=== PATIENT | female | born 1960 | race Caucasian/White ===

== ENCOUNTER 2020-06-11 10:50 | Outpatient (CLI) | payer BC, OTHER, SELFPAY ==
--- NOTE | 2020-06-11 11:04 | XR_ITS ---
WS: [id number] SHOULDER LEFT TECHNIQUE: 3 views of the left shoulder CLINICAL INFORMATION: PAIN IN LEFT SHOULDER COMPARISON: None. FINDINGS: Moderate degenerative arthritis acromioclavicular joint with hypertrophic changes. Mild degenerative narrowing glenohumeral joint. Acromion is normal in appearance. Normal glenoid. No evidence of acute fracture dislocation. XR/XR shoulder LT min 2V* [id number] IMPRESSION: No acute fractures
--- NOTE | 2020-06-11 11:04 | XR_ITS ---
WS: [id number] Humerus LEFT TECHNIQUE: 2 views of the left humerus CLINICAL INFORMATION: PAIN IN LEFT UPPRE ARM COMPARISON: None. FINDINGS: Normal left humerus. No acute fracture dislocation. XR/[place] [id number] IMPRESSION: Normal left humerus.
== END 2020-06-11 10:51 | disposition home or self-care (01) ==
LOC: RADWPI 11:00
PROVIDERS: PCP Nurse Practitioner Family; Visit Provider Nurse Practitioner Family
DX: M79.622 Pain in left upper arm (principal); M25.512 Pain in left shoulder
CPT/HCPCS: 73030; 73060

== ENCOUNTER 2020-08-01 10:27 | Outpatient (CLI) | payer BC, OTHER, SELFPAY ==
--- NOTE | 2020-08-01 11:00 | MR_ITS ---
WS: [id number] MRI LEFT SHOULDER NONCONTRAST TECHNIQUE: Sagittal T2, coronal T1, T2 and proton density imaging. Axial gradient PDE imaging. CLINICAL INFORMATION: M25.512 - Pain in left shoulder COMPARISON: None. FINDINGS: Moderate degenerative arthritis at the AC joint with mild edema. Subacromial space is preserved. Mild chronic thinning of the distal supraspinatus. Tiny insertional tear at the undersurface distal supra spinatus. Mild tendinopathy distally. Normal infraspinatus. Normal subscapularis. Teres minor is norm al. No full-thickness rotator cuff tears. Normal biceps tendon in the bicipital groove. Degenerative fraying of the glenoid labrum.Normal intra -articular biceps tendon. Normal bone marrow signal in the humeral head and neck. No acute fractures. Normal bony glenoid. IMPRESSION: 1. Moderate degenerative arthritis at the AC joint with mild edema. 2. Tiny undersurface tear at the supraspinatus insertion. Tendinopathy in the distal supraspinatus. 3. Rotator cuff is otherwise unremarkable. No high-grade rotator cuff tears. 4. Normal biceps tendon in the bicipital groove. Normal intra-articular biceps tendon. 5. Degenerative fraying glenoid labrum. 6. Normal bone marrow signal in the humeral head and neck. No acute fractures. Normal bony glenoid.
== END 2020-08-01 10:28 | disposition home or self-care (01) ==
LOC: RADSHAW 10:31
PROVIDERS: PCP Nurse Practitioner Family; Visit Provider Orthopaedic Surgery
DX: M19.012 Primary osteoarthritis, left shoulder (principal); R60.0 Localized edema; M75.102 Unspecified rotator cuff tear or rupture of left shoulder, not specified as traumatic
CPT/HCPCS: 73221

== ENCOUNTER 2020-09-16 11:05 | Outpatient (CLI) | payer BC, OTHER, SELFPAY ==
--- NOTE | 2020-09-16 11:11 | MM_ITS ---
WS: [id number] BILATERAL SCREENING MAMMOGRAM WITH YUE DISPLACEMENT VIEWS. CAD PERFORMED. HISTORY: SCREENING COMPARISON: None available. Bilateral craniocaudal and mediolateral like views are performed. Yue displacement views in CC and MLO projection also performed. Breasts composition: There are scattered areas of fibroglandular density. Prepectoral implants are intact. Asymmetry central to the nipple and above the nipple on the implant displacement views of the RIGHT breast. There is an additional partially visualized asymmetry on the LEFT ML displacement view posteriorly above the nipple line. Incompletely visualized. This may corres pond to the increased density seen on the LEFT CC projection anterior to the implant. MM/[place] [id number] IMPRESSION: BI-RADS: 0-Incomplete: Need additional imaging evaluation FOLLOW-UP: Need Additional Imaging Bilateral breast: Spot compression views (CC and MLO). True ML. Ultrasound to f jonathonlow if abnormality persists.
== END 2020-09-16 11:06 | disposition home or self-care (01) ==
LOC: RADSHAW 11:08
PROVIDERS: PCP Nurse Practitioner Family; Visit Provider Nurse Practitioner Family
DX: Z12.31 Encounter for screening mammogram for malignant neoplasm of breast (principal); N64.89 Other specified disorders of breast
CPT/HCPCS: 77067

== ENCOUNTER 2020-09-30 14:33 | Outpatient (CLI) | payer BC, OTHER, SELFPAY ==
--- NOTE | 2020-09-30 14:41 | MM_ITS ---
WS: [id number] ADDITIONAL VIEWS BILATERAL MAMMOGRAM ADDITIONAL VIEWS BILATERAL MAMMOGRAM HISTORY: ABNORMAL/INCONCLUSIVE FINDING ON IMAGING OF BREAST COMPARISON: 09/16/2020 Right breast: Asymmetry in the RIGHT breast seen on the prior study of the implant appears to be a ly mph node. Left breast: Asymmetry adjacent to the LEFT implant resolves on the spot compression LEFT CC. MM/[place] [id number] IMPRESSION: BI-RADS: 2-Benign FOLLOW UP: 1 Year Follow-up
== END 2020-09-30 14:34 | disposition home or self-care (01) ==
LOC: RADSHAW 14:39
PROVIDERS: PCP Nurse Practitioner Family; Visit Provider Nurse Practitioner Family
DX: R92.8 Other abnormal and inconclusive findings on diagnostic imaging of breast (principal); N64.89 Other specified disorders of breast
CPT/HCPCS: 77066

== ENCOUNTER 2022-11-29 09:25 | Outpatient (CLI) | payer BC, OTHER, SELFPAY ==
--- NOTE | 2022-11-29 09:38 | XR_ITS ---
WS: [id number] XR knee LT 1-2V [id number] REASON FOR EXAM: BILATERAL KNEE PAIN FINDINGS: No fracture or other focal bone lesion. The medial knee joint spaces intact and well preserved. Moderate narrowing of the lateral knee joint space (joint space not well demonstrated) with moderate subchondral sclerosis and osteophytosis. Mild narrowing of the patellofemoral joint space with subchondral sclerosis and osteophytosis of the patella. XR/XR knee LT -V [id number] IMPRESSION: Moderate osteoarthritis of the left knee as above.
--- NOTE | 2022-11-29 09:38 | XR_ITS ---
WS: [id number] XR knee RT 1-2V [id number] REASON FOR EXAM: BILATERAL KNEE PAIN FINDINGS: No fracture or focal bone lesion. Medial knee joint space is intact. Moderate osteophytosis of the medial femoral condyle. Moderate narrowing of the lateral knee joint space (joint space not well demonstrated) with moderate subchondral sclerosis and osteophytosis. Mild narrowing of the patellofemoral joint space with subchondral sclerosis and marginal osteophytosi s of the patella. XR/XR knee RT 1-2V [id number] IMPRESSION: Moderate osteoarthritis of the right knee.
== END 2022-11-29 09:26 | disposition home or self-care (01) ==
PROVIDERS: PCP Nurse Practitioner Family; Visit Provider Nurse Practitioner Family
DX: M17.0 Bilateral primary osteoarthritis of knee (principal)
CPT/HCPCS: 73560

== ENCOUNTER 2022-12-10 15:06 | Outpatient (CLI) | payer BC, SELFPAY ==
--- NOTE | 2022-12-10 15:10 | MM_ITS ---
WS: [id number] BILATERAL 3D TOMOSYNTHESIS DIGITAL SCREENING MAMMOGRAPHY WITH CAD CLINICAL INFORMATION: SCREENING HISTORY: Screening mammogram. No current complaints. COMPARISON: September 16, 2020 TECHNIQUE: Bilateral CC and MLO views. FINDINGS: Bilateral breast implants. These are stable in appearance compared to previous. Scattered fibroglandular densities bilaterally. No suspicious focal mass, asymmetry, calcifications, or architectural distortion. No evidence of malignancy. A few tiny incidental punctate calcifications . MM/[place] [id number] IMPRESSION: BI-RADS: 2-Benign FOLLOW UP: 1 Year Follow-up Recommend return to annual screening mammography.
== END 2022-12-10 15:07 | disposition home or self-care (01) ==
LOC: RAD 15:07
PROVIDERS: PCP Nurse Practitioner Family; Visit Provider Nurse Practitioner Family
DX: Z12.31 Encounter for screening mammogram for malignant neoplasm of breast (principal)
CPT/HCPCS: 77063; 77067

== ENCOUNTER 2024-03-05 11:53 | Outpatient (CLI) | payer BC, SELFPAY ==
--- NOTE | 2024-03-05 11:59 | XRR_ITS ---
PROCEDURE INFORMATION: Exam: XR Abdomen Exam date and time: 03/05/2024 12:05 PM Age: 63 years old Clinical indication: Abdominal pain; Localized; Lower; Prior surgery; Surgery date: 6+ months; Surgery type: Hysterectomy; Additional info: Lower abdominal pain TECHNIQUE: Imaging protocol: Radiologic exam of the abdomen. Views: Frontal supine view of the abdomen. 1 View. COMPARISON: No relevant prior studies available. FINDINGS: Gastrointestinal tract: Moderate stool burden in the ascending colon. Organs: Status post cholecystectomy. Bones/joints: Degenerative changes of the lower lumbar spine with mild levocurvature. XR/XR KUB [id number] IMPRESSION: No acute findings.
== END 2024-03-05 11:54 | disposition home or self-care (01) ==
LOC: RAD 11:57
PROVIDERS: PCP Nurse Practitioner Family; Visit Provider Nurse Practitioner Family
DX: K59.00 Constipation, unspecified (principal); M51.36 Other intervertebral disc degeneration, lumbar region; Z90.710 Acquired absence of both cervix and uterus; Z90.49 Acquired absence of other specified parts of digestive tract; R10.30 Lower abdominal pain, unspecified
CPT/HCPCS: 74018

== ENCOUNTER 2024-07-24 11:44 | Outpatient (RCR) | payer BC, SELFPAY | END 2024-08-17 23:59 | disposition home or self-care (01) | LOC: SPT 11:44 | PROVIDERS: Visit Provider Nurse Practitioner Family | DX: Z47.1 Aftercare following joint replacement surgery (principal); Z96.652 Presence of left artificial knee joint | CPT/HCPCS: 97110; 97112; 97161 ==

== ENCOUNTER 2024-08-16 17:37 | Emergency (ER) | payer BC, SELFPAY ==
--- NOTE | 2024-08-16 17:39 | USR_ITS ---
PROCEDURE INFORMATION: Exam: US Duplex Left Lower Extremity Veins, Limited Exam date and time: 08/16/2024 5:54 PM Age: 64 years old Clinical indication: Pain; Leg, lower; Left; Prior surgery; Surgery date: 1-6 months; Surgery type: Knee replacement; Additional info: Swelling TECHNIQUE: Imaging protocol: Real-time duplex ultrasound of the left extremity with 2-D rust scale, color Doppler flow and spectral waveform analysis including responses to compression and other maneuvers (when performed) with image documentation. Limited exam focused on the left lower extremity veins. COMPARISON: CR XR knee LT 1-2V [id number] 11/29/2022 9:41 AM FINDINGS: Left deep veins: Unremarkable. The common femoral, femoral, proximal profunda femoral, popliteal, posterior tibial and peroneal veins are patent without thrombus. Normal compressibility, augmentation response and Doppler waveforms. Superficial veins: Greater saphenous vein at the saphenofemoral junction is patent without thrombus. Soft tissues: Unremarkable. US/[place] [id number] IMPRESSION: No sonographic evidence of deep vein thrombosis.
[2024-08-16 17:54] VITALS: BP 115/70; PULSE 85; TEMP 36.8; O2SAT 99; BMI 29.2
--- NOTE | 2024-08-16 18:34 | W.ED.EXTPRO ---
HPI - Extremity Problem General: Chief complaint: Extremity Problem,Nontraumatic Stated complaint: Lt leg swollen Time Seen by Provider: 08/16/24 18:26 Source: patient Mode of arrival: ambulatory Limitations: no limitations History of Present Illness: 64-year-old female that had a knee replacement to her left knee 1 month ago. States been doing physical therapy been doing fine but states over the last week she has been having pain in her left Achilles tendon she has had some increased swelling to her left lower leg as well. States pain is worse with walking she denies any new injuries she said that she did talk to orthopedist and they wanted to make sure she did not have a blood clot Associated symptoms: Deny chest pain, fever(s) or rash Related Data Home Medications ?Medication ?Instructions ?Recorded ?Confirmed atorvastatin 10 mg tablet 10 mg PO DAILY 07/21/20 07/21/20 etodolac 400 mg tablet 400 mg PO BID 07/21/20 07/21/20 levothyroxine 88 mcg capsule 88 mcg PO DAILY 07/21/20 07/21/20 omeprazole 40 mg capsule,delayed 40 mg PO DAILY 07/21/20 07/21/20 release tramadol 50 mg tablet 50 mg PO DAILY 07/21/20 07/21/20 Allergies Allergy/AdvReac Type Severity Reaction Status Date / Time celecoxib (From Celebrex) Allergy Severe ALGY-Anaphy Verified 08/16/24 18:00 laxis Review of Systems Const: Denies: fever(s), chills, body aches or change in appetite ENMT: Denies: throat pain or dental pain Card: Denies: chest pain Resp: Denies: dyspnea GI: Denies: abdominal pain, nausea, vomiting or diarrhea Musc: Reports: extremity pain; Denies: neck pain or back pain Skin/Breast: Denies: rash Neuro: Denies: headache(s) Physical Exam Const: COMMON NORMALS: no acute distress, patient oriented x3 and healthy appearing HENMT: COMMON NORMALS: normocephalic and atraumatic HEAD & SCALP: normocephalic and atraumatic Eye: COMMON NORMALS: conjunctivae normal CONJUNCTIVA: Yes conjunctivae normal Neck/C-Spine: COMMON NORMALS: full ROM and supple Chest: COMMONS NORMALS: normal inspection of the chest Resp: COMMON NORMALS: normal respiratory effort Cardio: COMMON NORMALS: regular rate RATE: regular rate Extremity: OTHER: Tenderness over left Achilles tendon tendons intact some slight left calf swelling incision to her knee is clean dry and intact no warmth to touch Neuro: COMMON NORMALS: patient oriented x3, moves all extremities and no focal motor deficits Psych: COMMON NORMALS: mental status grossly normal, Normal thought process present and cooperative THOUGHT PROCESS: Normal thought process present Skin: COMMON NORMALS: no rashes or lesions noted and no wounds GENERAL SKIN EXAM: no rashes or lesions noted Course Vital Signs: Vital signs: Vital Signs Temperature 98.2 F 08/16/24 17:54 Pulse Rate 85 08/16/24 17:54 Blood Pressure 115/70 08/16/24 17:54 Pulse Oximetry 99 08/16/24 17:54 Oxygen Delivery Me thod Room Air 08/16/24 17:54 MDM - Extremity (Nontraumatic) Medical Decision Making Patient presents for left leg pain is likely a tendinitis ultrasound here showed no signs of DVT she stable for discharge she is to follow-up with orthopedist she is to rest ice compress. Medical Records I reviewed the patient's medical records. No radiology studies performed this visit Discharge Plan Discharge Patient Disposition: Home Clinical Impression: Left leg pain Condition: Stable Prescriptions: No Action atorvastatin 10 mg tablet 10 mg PO DAILY etodolac 400 mg tablet 400 mg PO BID levothyroxine 88 mcg capsule 88 mcg PO DAILY omeprazole 40 mg capsule,delayed release(DR/EC) 40 mg PO DAILY tramadol 50 mg tablet 50 mg PO DAILY Discharge Orders: Discharge ED (Routine); Ordered 08/16/24 Ordered By: Michi Wheeler Referrals: Song Garrett MD [Primary Care Provider] - 4-7 days Discharge Diet: Advance as tolerated Discharge Activity: Resume usual activity Patient Instructions: Leg Pain (ED) Print Language: Guamanian Coding Level of Care Code ED Finger Lift Operator for Soraya Martinez
[2024-08-16] MEDS: HYDROcodone-acetaminophen 7.5-325 mg Tablet 1 TAB PO (18:56)
[2024-08-16 18:57] VITALS: BP 106/58; PULSE 81; O2SAT 98
== END 2024-08-16 19:01 | disposition home or self-care (01) ==
PROVIDERS: Emergency Provider Emergency Medicine; PCP Orthopaedic Surgery
DX: M79.605 Pain in left leg (principal); Z96.652 Presence of left artificial knee joint
CPT/HCPCS: 93971; 99284

== ENCOUNTER 2024-08-18 06:00 | Outpatient (RCR) | payer BC, SELFPAY | END 2024-09-17 23:59 | disposition home or self-care (01) | LOC: SPT 06:00 | PROVIDERS: PCP Orthopaedic Surgery; Visit Provider Nurse Practitioner Family | DX: Z47.1 Aftercare following joint replacement surgery (principal); Z96.652 Presence of left artificial knee joint | CPT/HCPCS: 97110 ==

== ENCOUNTER 2024-09-18 06:00 | Outpatient (RCR) | payer BC, SELFPAY | END 2024-10-17 23:59 | disposition home or self-care (01) | LOC: SPT 06:00 | PROVIDERS: PCP Orthopaedic Surgery; Visit Provider Nurse Practitioner Family | DX: Z47.1 Aftercare following joint replacement surgery (principal); Z96.652 Presence of left artificial knee joint | CPT/HCPCS: 97110; 97164 ==

== ENCOUNTER 2024-10-18 05:00 | Outpatient (RCR) | payer BC, SELFPAY | END 2024-11-17 23:59 | disposition home or self-care (01) | LOC: SPT 05:00 | PROVIDERS: PCP Nurse Practitioner Family; Visit Provider Podiatrist Foot & Ankle Surgery | DX: M76.62 Achilles tendinitis, left leg (principal) | CPT/HCPCS: 97161 ==

== ENCOUNTER 2024-10-18 06:00 | Outpatient (RCR) | payer BC, SELFPAY | END 2024-11-17 23:59 | disposition home or self-care (01) | LOC: SPT 06:00 | PROVIDERS: PCP Nurse Practitioner Family; Visit Provider Nurse Practitioner Family | DX: Z47.1 Aftercare following joint replacement surgery (principal); Z96.652 Presence of left artificial knee joint | CPT/HCPCS: 97110 ==

== ENCOUNTER 2024-10-22 13:23 | Outpatient (CLI) | payer BC, SELFPAY ==
--- NOTE | 2024-10-22 13:25 | MM_ITS ---
WS: [id number] BILATERAL 3D TOMOSYNTHESIS DIGITAL SCREENING MAMMOGRAPHY WITH CAD CLINICAL INFORMATION: SCREENING HISTORY: Screening mammogram. No current complaints. COMPARISON: 2022 TECHNIQUE: Bilateral CC and MLO views. FINDINGS: Bilateral breast implants stable in appearance compared to previous. Scattered fibroglandular densities bilaterally. No suspicious focal mass, asymmetry, calcifications, or architectural distortion. No evidence of malignancy. Stable asymmetric densities outer LEFT breast. These were previously evaluated and compressed on the spot compression views. MM/MM [facility] tomosynthesis [id number] IMPRESSION: DENSITY: There are scattered areas of fibroglandular density. BI-RADS: 2 - Benign. FOLLOW UP: 1 Year Follow-up Recommend return to annual screening mammography.
== END 2024-10-22 13:24 | disposition home or self-care (01) ==
LOC: RAD 13:24
PROVIDERS: PCP Nurse Practitioner Family; Visit Provider Nurse Practitioner Family
DX: Z12.31 Encounter for screening mammogram for malignant neoplasm of breast (principal); R92.323 Mammographic fibroglandular density, bilateral breasts; N64.89 Other specified disorders of breast; Z98.82 Breast implant status
CPT/HCPCS: 77063; 77067

== ENCOUNTER → 2024-10-24 15:08 | Outpatient (BNVA) | payer BC, SELFPAY | PROVIDERS: PCP Nurse Practitioner Family; Visit Provider Podiatrist Foot & Ankle Surgery | DX: M25.472 Effusion, left ankle (principal); M25.572 Pain in left ankle and joints of left foot; M95.8 Other specified acquired deformities of musculoskeletal system; M76.72 Peroneal tendinitis, left leg | CPT/HCPCS: 73610 ==

== ENCOUNTER 2024-10-24 15:50 | Outpatient (CLI) | payer BC, SELFPAY | END 2024-10-24 15:51 | disposition home or self-care (01) | LOC: SPT 15:51 | PROVIDERS: PCP Nurse Practitioner Family; Visit Provider Podiatrist Foot & Ankle Surgery | DX: Z46.89 Encounter for fitting and adjustment of other specified devices (principal); M95.8 Other specified acquired deformities of musculoskeletal system; M25.572 Pain in left ankle and joints of left foot | CPT/HCPCS: L1902 ==

== ENCOUNTER 2024-11-07 11:40 | Outpatient (CLI) | payer BC, SELFPAY ==
--- NOTE | 2024-11-07 12:15 | MR_ITS ---
WS: [id number] MRI LEFT ANKLE WITHOUT CONTRAST. COMPARISON: Radiograph 10/24/2024 Multiplanar, multisequence imaging is performed without contrast. History: Prior LEFT knee replacement. Continued ankle pain and swelling since knee replacement. Acute marrow edema noted throughout several bones of the ankle including the distal tibia extending to the tibial plafond. Edema extends into the medial, lateral and posterior tibia. Focal edema throughout the distal fibula. Marrow edema involving a large portion of the talus. The edema is predominantly along the subarticular surface and also the anterior talar process. Marrow edema extends into the calcaneus involving the posterior process and subtalar portion of the calcaneus. No fractures are identified. There is narrowing of the tibiotalar joint space. There is an osteochondral lesion measuring 6 mm in the distal medial fibula. Mild widening and fluid involving the syndesmosis. Complex appearing joint effusion extending into the anterior and posterior recesses. This is a complex joint effusion with thickened bernstein and central fluid. Diffuse soft tissue edema surrounding the ankle. Mild Achilles tendinopathy but no tear. Plantar fascia appears intact. There is a very small amount of fluid within the peroneal tendon sheath. No tendon tear. The posterior tibialis tendon, flexor hallucis longus and flexor digitorum longus tendons are appropriate. The extensor tendons appear appropriate. The anterior inferior tibiofibular ligament and the posterior inferior tibiofibular ligaments are normal. The anterior talofibular ligament is not identified. Posterior talofibular ligament is normal. Mild variable signal of the deltoid ligament is normal. Calcaneofibular ligament is identified and nor mal. MR/MR ankle LT wo con* [id number] IMPRESSION: 1. Complex joint effusion extending into the anterior and posterior recesses w ith synovial thickening. This may be related to acute synovitis or posttraumati c joint effusion. With the extent of effusion and the complexity with the marro w edema patient should be evaluated for possible septic joint. Post contrast MR I may be of benefit. 2. Marrow edema involving several bones of the ankle. 3. 6 mm osteochondral lesion in the distal fibula. 4. There is fluid extending into the syndesmosis which may be extension from t he joint effusion. 5. Absent anterior talofibular ligament, there is edema present consistent wit h a tear. 6. No peroneal tendon injury. 7. Soft tissue edema surrounding the ankle. Notified Roly Mays DPM at 11/07/2024 1:16 PM.
== END 2024-11-07 11:41 | disposition home or self-care (01) ==
PROVIDERS: PCP Nurse Practitioner Family; Visit Provider Podiatrist Foot & Ankle Surgery
DX: M95.8 Other specified acquired deformities of musculoskeletal system (principal); M25.472 Effusion, left ankle; R93.6 Abnormal findings on diagnostic imaging of limbs; R60.0 Localized edema; M93.272 Osteochondritis dissecans, left ankle and joints of left foot; Z96.652 Presence of left artificial knee joint; M67.874 Other specified disorders of tendon, left ankle and foot
CPT/HCPCS: 73721

== ENCOUNTER 2024-11-18 05:00 | Outpatient (RCR) | payer BC, SELFPAY | END 2024-12-17 06:51 | disposition home or self-care (01) | LOC: SPT 05:00 | PROVIDERS: PCP Nurse Practitioner Family; Visit Provider Nurse Practitioner Family | DX: Z47.1 Aftercare following joint replacement surgery (principal); Z96.652 Presence of left artificial knee joint | CPT/HCPCS: 97110; 97140; 97165 ==

== ENCOUNTER 2024-11-18 05:00 | Outpatient (RCR) | payer BC, SELFPAY | END 2024-12-17 23:59 | disposition home or self-care (01) | LOC: SPT 05:00 | PROVIDERS: PCP Nurse Practitioner Family; Visit Provider Podiatrist Foot & Ankle Surgery | DX: M76.62 Achilles tendinitis, left leg (principal) | CPT/HCPCS: 97110; 97140; 97164 ==

== ENCOUNTER 2024-11-26 00:15 | Emergency (ER) | payer BC, SELFPAY ==
[2024-11-26 00:18] VITALS: BP 143/75; PULSE 78; RESP 18; TEMP 36.7; O2SAT 99; BMI 30.2
--- NOTE | 2024-11-26 00:35 | XRR_ITS ---
PROCEDURE INFORMATION: Exam: XR Right Wrist Exam date and time: 11/26/2024 12:37 AM Age: 64 years old Clinical indication: Pain; Wrist; Right TECHNIQUE: Imaging protocol: Radiologic exam of the right wrist. Views: 3 or more views. COMPARISON: No relevant prior studies available. FINDINGS: Bones/joints: No identified acute osseous abnormality. Joint spaces aligned and maintained. Mild degenerative osteoarthritis of the triscaphe and 1st carpometacarpal joint. Soft tissues: No significant focal overlying soft tissue swelling. XR/XR wrist RT min 3V* [id number] IMPRESSION: No identified acute osseous abnormality.
--- NOTE | 2024-11-26 00:36 | W.ED.EXTPRO ---
HPI - Extremity Problem General: Chief complaint: Extremity Problem,Nontraumatic Stated complaint: Rt Arm Burning Pain Moving From Wrist Up Arm Time Seen by Provider: 11/26/24 00:27 History of Present Illness: Patient comes in with right wrist and forearm pain. States that she was out working in the yard today in the [employer]. States that over the course of the evening she has developed pain, swelling in her right wrist that is now traveling up her forearm. Denies any known trauma. On physical exam she does have some swelling of her right wrist and hand with tenderness to palpation of her wrist and pain with range of motion. Will check x-ray, treat pain with 30 mg of IM Toradol, add 60 mg of p.o. steroids for inflammation, and reassess. Related Data Home Medications ?Medication ?Instructions ?Recorded ?Confirmed atorvastatin 10 mg tablet 10 mg PO DAILY 07/21/20 10/24/24 etodolac 400 mg tablet 400 mg PO BID 07/21/20 10/24/24 levothyroxine 88 mcg capsule 88 mcg PO DAILY 07/21/20 10/24/24 omeprazole 40 mg capsule,delayed 40 mg PO DAILY 07/21/20 10/24/24 release tramadol 50 mg tablet 50 mg PO DAILY 07/21/20 10/24/24 Previous Rx's ?Medication ?Instructions ?Recorded ASO brace #1 ea 10/24/24 prednisone 20 mg tablet 60 mg (3 x 20 mg) PO DAILY 3 days 11/26/24 #12 tabs Allergies Allergy/AdvReac Type Severity Reaction Status Date / Time celecoxib (From Celebrex) Allergy Severe ALGY-Anaphy Verified 10/24/24 15:07 laxis Review of Systems Musc: Reports: joint pain and joint swelling PFS ED PFSH: Social History Smoking and tobacco/nicotine status: unknown if used tobacco/nicotine Physical Exam Const: COMMON NORMALS: healthy appearing HENMT: COMMON NORMALS: normocephalic and atraumatic HEAD & SCALP: normocephalic and atraumatic Eye: COMMON NORMALS: Equal, round and reactive pupils present and EOMs intact bilaterally PUPIL: Yes Equal, round and reactive pupils present Neck/C-Spine: COMMON NORMALS: full ROM and supple Resp: COMMON NORMALS: normal respiratory effort, No retractions and No use of accessory muscles Extremity: NARRATIVE EXTREMITY EXAM: Swelling of the right hand, right wrist with tenderness to palpation of the right wrist and pain with range of motion of the right wrist Course Vital Signs: Vital signs: Vital Signs Temperature 98.0 F 11/26/24 00:18 Pulse Rate 78 11/26/24 00:18 Respiratory Rate 18 11/26/24 00:18 Blood Pressure 143/75 11/26/24 00:18 Pulse Oximetry 99 11/26/24 00:18 Oxygen Delivery Me thod Room Air 11/26/24 00:18 MDM - Extremity (Nontraumatic) Medical Decision Making On reassessment I talked with the patient about the test results. Her x-ray shows no acute bony abnormality. Will encourage her to continue ice, anti-inflammatories. Will continue steroids for the next 4 days. We discussed symptoms that should prompt immediate return to the emergency department. Will discharge at this time with precautions to return for worsening or changing symptoms. Lab Data Radiology Impressions Wrist X-Ray 11/26/24 00:35 IMPRESSION: No identified acute osseous abnormality. All radiology interpretation(s) finalized by discharge Discharge Plan Discharge Patient Disposition: Home Clinical Impression: Acute wrist pain Condition: Stable Prescriptions: New prednisone 20 mg tablet 60 mg PO DAILY 3 Days Qty: 12 0RF No Action atorvastatin 10 mg tablet 10 mg PO DAILY etodolac 400 mg tablet 400 mg PO BID levothyroxine 88 mcg capsule 88 mcg PO DAILY omeprazole 40 mg capsule,delayed release(DR/EC) 40 mg PO DAILY tramadol 50 mg tablet 50 mg PO DAILY (DME) ASO brace See Rx Instructions .Route .MEDSUPPLY Qty: 1 0RF Rx Instructions: As directed Discharge Orders: Discharge ED (Routine); Ordered 11/26/24 Ordered By: Dex Jovel Referrals: Rebecca Pabon NP [Primary Care Provider, Unknown] Patient Instructions: Pain Management Print Language: Maltese Coding Level of Care Code ED Facility Administrator for Soraya Martinez
[2024-11-26] MEDS: ketorolac 30 mg/mL INJ IM (00:55)
[2024-11-26] MEDS: predniSONE 20 mg Tablet 60 MG PO (00:56)
[2024-11-26 01:28] VITALS: BP 126/83; PULSE 68; RESP 16; O2SAT 100
== END 2024-11-26 01:29 | disposition home or self-care (01) ==
PROVIDERS: Emergency Provider Emergency Medicine; PCP Nurse Practitioner Family
DX: M25.531 Pain in right wrist (principal); X58.XXXA Exposure to other specified factors, initial encounter; Y93.H2 Activity, gardening and landscaping; Z79.899 Other long term (current) drug therapy; Z79.890 Hormone replacement therapy
CPT/HCPCS: 73110; 96372; 99284; J1885; J7512